=== PATIENT | male | born 1990 | race Asian ===

== ENCOUNTER 2024-04-03 09:24 | Emergency (ER) | payer OTHER ==
[~2024-04-03] VITALS: Ht 193 cm; Wt 114.8 kg
[2024-04-03 09:45] VITALS: BP 105/73; TEMP 98.6; O2SAT 99
== END 2024-04-03 11:14 | disposition home or self-care (01) ==
LOC: ER 09:31
DX: M79.89 Other specified soft tissue disorders (principal); S50.01XA Contusion of right elbow, initial encounter; W10.8XXA Fall (on) (from) other stairs and steps, initial encounter; Y93.89 Activity, other specified; Y92.098 Other place in other non-institutional residence as the place of occurrence of the external cause; Y99.8 Other external cause status
CPT/HCPCS: 73080-TC